=== PATIENT | male | born 1945 | race African-American/Black ===

== ENCOUNTER 2020-05-09 17:30 | Observation (INO) ==
[2020-05-09] MEDS ORDERED: 0.9 % Sodium Chloride 1,000 ML IVC ONE (17:36)
[2020-05-09 17:54] LABS: Basophils % 0.4 %; Eosinophils # 0.1 K/mcL (0.0-0.6); Eosinophils % 1.8 %; Hematocrit 33.9 % (37.5-50.1); Hemoglobin 11.2 g/dL (12.9-16.9); Immature Granulocytes % 0.2 % (0-4); Lymphocytes # 1.8 K/mcL (0.6-4.6); Mean Corpuscular Hemoglobin 30.9 pg (28.0-33.3); Mean Corpuscular Volume 93.4 fL (83.0-100.0); Mean Platelet Volume 9.3 fL (9.4-12.4); Monocytes # 0.8 K/mcL (0.0-1.3); Monocytes % 15.4 %; Neutrophils # 2.4 K/mcL (1.6-8.9); Platelet Count 177 K/mcL (140-400); Red Blood Count 3.63 M/mcL (4.19-5.50); Red Cell Distribution Width 14.8 % (11.5-14.5); Segmented Neutrophils % 47.2 %; White Blood Count 5.1 K/mcL (4.3-11.1)
[2020-05-09 18:11] LABS: Activated Partial Thrombo Time 42.2 Seconds (26.0-36.0); INR 1.1
[2020-05-09 18:15] LABS: Alanine Aminotransferase 12 Units/L (7-52); Albumin 3.7 g/dL (3.5-5.7); Albumin/Globulin Ratio 1.2 (1.1-2.2); Alkaline Phosphatase 85 Units/L (34-104); Aspartate Amino Transferase 17 Units/L (13-39); BUN/Creatinine Ratio 11 (6-26); Bilirubin,Direct 0.1 mg/dL (0.0-0.2); Bilirubin,Indirect 0.3 mg/dL (0.0-1.0); Bilirubin,Total 0.4 mg/dL (0.3-1.0); Blood Urea Nitrogen 14 mg/dL (8-23); Calcium 8.3 mg/dL (8.6-10.3); Carbon Dioxide 26 mEq/L (23-29); Chloride 108 mEq/L (98-107); Creatine Kinase 102 Units/L (30-223); Ethanol < 10 mg/dL (Less than 10); Globulin 3.1 g/dL (2.4-3.5); Glucose 99 mg/dL (70-105); Osmolality,Calculated 295 (280-300); Sodium 142 mEq/L (136-145); Total Protein 6.8 g/dL (6.4-8.9); Troponin I < 0.03 ng/mL (< 0.04); eGFR For African Americans > 60 (> 60); eGFR For Non-African Americans 58 (> 60)
[2020-05-09 18:31] LABS: Bilirubin,Urine Negative (Negative); Blood,Urine Negative (Negative); Clarity,Urine Clear (Clear); Color,Urine Yellow (Yellow); Glucose,Urine (UA) Normal (Normal); Ketones,Urine Negative (Negative); Leukocyte Esterase,Urine Negative (Negative); Nitrite,Urine Negative (Negative); Protein,Urine Negative (Neg-Trace); Specific Gravity,Urine 1.015 (1.010-1.025); Urobilinogen,Urine Normal (Normal)
[2020-05-09 18:47] LABS: Amphetamine Screen,Urine Negative ng/mL (Cutoff=1000); Barbiturate Screen,Urine Negative ng/mL (Cutoff=200); Benzodiazepines Screen,Urine Negative ng/mL (Cutoff=200); Cannabinoid Screen,Urine Negative ng/mL (Cutoff = 50); Cocaine Screen,Urine Negative ng/mL (Cutoff= 300); Opiate Screen,Urine Negative ng/mL (Cutoff=300); Phencyclidine Screen,Urine Negative ng/mL (Cutoff=25)
[2020-05-09] MEDS ORDERED: Naloxone 0.4 MG/ML INJ IVP PRN (19:06)
[2020-05-09] MEDS ORDERED: Ondansetron 4 MG/2 ML VIAL IVP PRN (19:06)
[2020-05-09] MEDS ORDERED: Acetaminophen 325 MG TABLET PO PRN (19:06)
[2020-05-09] MEDS ORDERED: Mag Hydrox/Al Hydrox/Simeth 30 ML UDC PO PRN (19:06)
[2020-05-09] MEDS ORDERED: MOM Conc 10 ML UD.LIQ PO PRN (19:06)
[2020-05-09] MEDS ORDERED: D5% in Water 1,000 ML IVC PRN (19:12)
[2020-05-09] MEDS ORDERED: *HR* Dextrose 50 % in Water (Vial) 50 ML VIAL IVP PRN (19:12)
[2020-05-09] MEDS ORDERED: Dextrose Gel 15 GM/37.5 ML TUBE PO PRN ×2 (19:12)
[2020-05-09] MEDS: *HR* LORazepam 0.5 MG TABLET PO SCH (20:09)
[2020-05-09] MEDS: Famotidine 20 MG TABLET PO SCH (20:10)
[2020-05-09] MEDS: QUEtiapine Fumarate 100 MG TABLET PO SCH (20:10)
[2020-05-09] MEDS: Melatonin 3 MG TABLET PO SCH (20:10)
[2020-05-09] MEDS: Pyridoxine (B-6) 50 MG TABLET PO SCH (20:11)
[2020-05-09] MEDS: Dorzolamide OPTH 10 ML BOTTLE BOTH EYES SCH (20:13)
[2020-05-09] MEDS: 0.9 % Sodium Chloride 1,000 ML IVC SCH (20:18)
[2020-05-09] MEDS: Insulin LISPRO 300 UNITS/3 ML VIAL SQ SCH (20:27)
[2020-05-09] MEDS ORDERED: Haloperidol Lactate 5 MG/ML VIAL IVP ONE (22:44)
[2020-05-10] MEDS: 0.9 % Sodium Chloride 1,000 ML IVC SCH (03:48)
[2020-05-10 07:15] LABS: Basophils % 0.4 %; Eosinophils # 0.2 K/mcL (0.0-0.6); Eosinophils % 2.7 %; Hemoglobin 12.5 g/dL (12.9-16.9); Immature Granulocytes % 0.1 % (0-4); Lymphocytes # 2.2 K/mcL (0.6-4.6); Lymphocytes % 33.3 %; Mean Corpuscular HGB Conc 32.9 g/dL (31.6-35.5); Mean Corpuscular Hemoglobin 31.1 pg (28.0-33.3); Mean Corpuscular Volume 94.5 fL (83.0-100.0); Mean Platelet Volume 9.8 fL (9.4-12.4); Monocytes # 0.8 K/mcL (0.0-1.3); Monocytes % 12.3 %; Neutrophils # 3.4 K/mcL (1.6-8.9); Platelet Count 194 K/mcL (140-400); Red Blood Count 4.02 M/mcL (4.19-5.50); Red Cell Distribution Width 14.7 % (11.5-14.5); Segmented Neutrophils % 51.2 %; White Blood Count 6.7 K/mcL (4.3-11.1)
[2020-05-10 07:56] LABS: BUN/Creatinine Ratio 10 (6-26); Blood Urea Nitrogen 11 mg/dL (8-23); Calcium 8.5 mg/dL (8.6-10.3); Carbon Dioxide 27 mEq/L (23-29); Chloride 109 mEq/L (98-107); Glucose 83 mg/dL (70-105); Osmolality,Calculated 293 (280-300); Potassium 4.2 mEq/L (3.5-5.1); Sodium 142 mEq/L (136-145); eGFR For African Americans > 60 (> 60); eGFR For Non-African Americans > 60 (> 60)
[2020-05-10] MEDS ORDERED: Albuterol 2.5 MG/3 ML NEBULIZER IH PRN (08:13)
[2020-05-10] MEDS: Insulin LISPRO 300 UNITS/3 ML VIAL SQ SCH ×4 (08:37→20:06)
[2020-05-10] MEDS: Latanoprost 2.5 ML BOTTLE BOTH EYES SCH (08:47)
[2020-05-10] MEDS: PARoxetine 20 MG TABLET PO SCH (08:49)
[2020-05-10] MEDS: QUEtiapine Fumarate 100 MG TABLET PO SCH ×2 (08:49→20:04)
[2020-05-10] MEDS: Dorzolamide OPTH 10 ML BOTTLE BOTH EYES SCH ×3 (08:56→20:07)
[2020-05-10] MEDS ORDERED: RANITIDINE HCL 150 MG PO SCH (09:00)
[2020-05-10 10:44] LABS: Estimated Average Glucose 148 mg/dl
[2020-05-10] MEDS: Pyridoxine (B-6) 50 MG TABLET PO SCH (20:04)
[2020-05-10] MEDS: Famotidine 20 MG TABLET PO SCH (20:04)
[2020-05-10] MEDS: Melatonin 3 MG TABLET PO SCH (20:04)
[2020-05-10] MEDS: *HR* LORazepam 0.5 MG TABLET PO SCH (20:05)
[2020-05-11 07:26] LABS: Basophils % 0.4 %; Eosinophils # 0.2 K/mcL (0.0-0.6); Eosinophils % 2.8 %; Hematocrit 39.5 % (37.5-50.1); Hemoglobin 13.1 g/dL (12.9-16.9); Immature Granulocytes % 0.3 % (0-4); Lymphocytes # 1.5 K/mcL (0.6-4.6); Lymphocytes % 21.8 %; Mean Corpuscular HGB Conc 33.2 g/dL (31.6-35.5); Mean Corpuscular Hemoglobin 31.1 pg (28.0-33.3); Mean Corpuscular Volume 93.8 fL (83.0-100.0); Mean Platelet Volume 10.2 fL (9.4-12.4); Monocytes # 0.6 K/mcL (0.0-1.3); Monocytes % 9.1 %; Neutrophils # 4.6 K/mcL (1.6-8.9); Platelet Count 217 K/mcL (140-400); Red Blood Count 4.21 M/mcL (4.19-5.50); Red Cell Distribution Width 14.5 % (11.5-14.5); Segmented Neutrophils % 65.6 %; White Blood Count 7.1 K/mcL (4.3-11.1)
[2020-05-11 07:35] LABS: BUN/Creatinine Ratio 12 (6-26); Blood Urea Nitrogen 13 mg/dL (8-23); Calcium 9.1 mg/dL (8.6-10.3); Carbon Dioxide 30 mEq/L (23-29); Chloride 103 mEq/L (98-107); Glucose 70 mg/dL (70-105); Osmolality,Calculated 289 (280-300); Potassium 4.2 mEq/L (3.5-5.1); Sodium 140 mEq/L (136-145); eGFR For African Americans > 60 (> 60); eGFR For Non-African Americans > 60 (> 60)
[2020-05-11] MEDS: Insulin LISPRO 300 UNITS/3 ML VIAL SQ SCH ×3 (07:51→16:44)
[2020-05-11] MEDS: PARoxetine 20 MG TABLET PO SCH (07:55)
[2020-05-11] MEDS: QUEtiapine Fumarate 100 MG TABLET PO SCH (07:56)
[2020-05-11] MEDS: Latanoprost 2.5 ML BOTTLE BOTH EYES SCH (07:57)
[2020-05-11] MEDS: Dorzolamide OPTH 10 ML BOTTLE BOTH EYES SCH ×2 (07:58→17:36)
[2020-05-11 16:53] VITALS: BP 139/88
== END 2020-05-11 19:13 | disposition other institution (70) ==
LOC: INPPIK 17:30 → EMEROOPIK 17:30 → INPPIK 19:41
PROVIDERS: ADMIT Family Medicine; ATTEND Family Medicine